=== PATIENT | female | born 1985 | race American Indian/Alaskan Native ===

== ENCOUNTER 2018-10-01 16:25 | Emergency (ER) | payer MEDICAID, OTHER ==
[2018-10-01] MEDS ORDERED: Ondansetron 4 MG Tab.DIS PO ONE (16:40)
[2018-10-01] MEDS ORDERED: Ketorolac 60 MG/2 ML SDV IM ONE (16:40)
--- NOTE | 2018-10-01 16:40 | EDM.PDOC ---
ED HPI GENERAL MEDICAL PROBLEM - General Chief Complaint: General Stated Complaint: flu like symptoms Time Seen by Provider: 10/01/18 16:27 Source of Information: Reports: Patient History Limitations: Reports: No Limitations - History of Present Illness INITIAL COMMENTS - FREE TEXT/NARRATIVE: HISTORY AND PHYSICAL: History of present illness: Patient is a 33-year-old female who presents to the emergency room today with complaints of body aches, cough and intermittent fevers x 24 hours. She has been using ibuprofen routinely without any relief. Patient denies any headache, change in vision, syncope or near syncope. Denies any chest pain, shortness of breath or cough. Denies any abdominal pain, nausea, vomiting, diarrhea, constipation or dysuria. Has not noted any blood in urine or stool. Patient has been eating and drinking appropriately. Review of systems: As per history of present illness and below otherwise all systems reviewed and negative. Past medical history: As per history of present illness and as reviewed below otherwise noncontributory. Surgical history: As per history of present illness and as reviewed below otherwise noncontributory. Social history: See social history for further information Family history: As per history of present illness and as reviewed below otherwise noncontributory. Physical exam: General: Well-developed and well-nourished 33-year-old female. Alert and oriented. Nontoxic appearing and in no acute distress. HEENT: Atraumatic, normocephalic, pupils equal and reactive bilaterally, negative for conjunctival pallor or scleral icterus, mucous membranes moist, TMs normal bilaterally, throat clear, neck supple, nontender, trachea midline. No drooling or trismus noted. No meningeal signs. No hot potato voice noted. Lungs: Diminished otherwise clear to auscultation, breath sounds equal bilaterally, chest nontender. dry nonproductive cough noted. Heart: S1S2, regular rate and rhythm without overt murmur Abdomen: Soft, nondistended, nontender. Negative for masses or hepatosplenomegaly. Negative for costovertebral tenderness. Pelvis: Stable nontender. Genitourinary: Deferred. Rectal: Deferred. Skin: Intact, warm, dry. No lesions or rashes noted. Extremities: Atraumatic, negative for cords or calf pain. Neurovascular unremarkable. Neuro: Awake, alert, oriented. Cranial nerves II through XII unremarkable. Cerebellum unremarkable. Motor and sensory unremarkable throughout. Exam nonfocal. Notes: Negative influenza screening. Supportive care measures were reviewed and discussed. Voices understanding and is agreeable to plan of care. Denies any further questions or concerns at this time. Diagnostics: Influenza Therapeutics: Toradol IM Prescription: Phenergan with Codeine Impression: Viral Illness Plan: 1. Please use Tylenol and/or Ibuprofen as needed for pain and fever management. 2. Get plenty of Rest. Encourage fluids to prevent dehydration. 3. Please follow up with your primary care provider. Return to the ED as needed as discussed. Definitive disposition and diagnosis as appropriate pending reevaluation and review of above. bodyaches Pain Score (Numeric/FACES): 5 - Related Data Allergies Allergy/AdvReac Type Severity Reaction Status Date / Time amoxicillin [Amoxicillin] Allergy Hives Verified 10/01/18 16:31 azithromycin [From Zithromax] Allergy Hives Verified 10/01/18 16:31 Penicillins Allergy Hives Verified 10/01/18 16:31 Home Meds: Home Meds Levothyroxine [Sythroid] 150 mcg PO DAILY 04/22/14 [History] Vitamin B Complex 1 tab PO DAILY 10/01/18 [History] Past Medical History HEENT History: Reports: None Cardiovascular History: Reports: None Respiratory History: Reports: Asthma Other Respiratory History: asthma symptoms if she has a cold Gastrointestinal History: Reports: None Genitourinary History: Reports: None [employer] History: Reports: Endometriosis, Musculoskeletal History: Reports: None Neurological History: Reports: None Psychiatric History: Reports: None Endocrine/Metabolic History: Reports: Hypothyroidism, Obesity/BMI 30+ Hematologic History: Reports: None Immunologic History: Reports: None Oncologic (Cancer) History: Reports: None Dermatologic History: Reports: None - Infectious Disease History Infectious Disease History: Reports: Chicken Pox - Past Surgical History Head Surgeries/Procedures: Reports: None HEENT Surgical History: Reports: None Cardiovascular Surgical History: Reports: None Respiratory Surgical History: Reports: None GI Surgical History: Reports: None Female Surgical History: Reports: Hysterectomy Endocrine Surgical History: Reports: None Neurological Surgical History: Reports: None Musculoskeletal Surgical History: Reports: None Oncologic Surgical History: Reports: None Dermatological Surgical History: Reports: None Social & Family History - Family History Family Medical History: Noncontributory - Tobacco Use Smoking Status *Q: Never Smoker Second Hand Smoke Exposure: No - Caffeine Use Caffeine Use: Reports: Soda - Recreational Drug Use Recreational Drug Use: No ED ROS GENERAL - Review of Systems Review Of Systems: ROS reveals no pertinent complaints other than HPI. ED EXAM, GENERAL - Physical Exam Exam: See Below (See dictation) Course - Vital Signs Last Recorded V/S: Last Vital Signs Temp 99.8 F 10/01/18 16:32 Pulse 94 10/01/18 16:32 Resp 18 10/01/18 16:32 BP 144/74 H 10/01/18 16:32 Pulse Ox 98 10/01/18 16:32 - Orders/Labs/Meds Meds: Medications Discontinued Medications Generic Name Dose Route Start Last Admin Trade Name Freq PRN Reason Stop Dose Admin Ketorolac Tromethamine 60 mg 10/01/18 16:40 10/01/18 16:48 Toradol IM 10/01/18 16:41 60 mg ONETIME ONE Administration Ondansetron HCl 4 mg 10/01/18 16:40 10/01/18 16:48 Zofran Odt PO 10/01/18 16:41 4 mg ONETIME ONE Administration Departure - Departure Time of Disposition: 17:22 Disposition: Home, Self-Care 01 Clinical Impression: Viral upper respiratory illness - Discharge Information Instructions: Upper Respiratory Infection, Adult, [id number] Referrals: Emiliana Colindres DO [Primary Care Provider] - Forms: ED Department Discharge Additional Instructions: The following information is given to patients seen in the emergency department who are being discharged to home. This information is to outline your options for follow-up care. We provide all patients seen in our emergency department with a follow-up referral. The need for follow-up, as well as the timing and circumstances, are variable depending upon the specifics of your emergency department visit. If you don't have a primary care physician on staff, we will provide you with a referral. We always advise you to contact your personal physician following an emergency department visit to inform them of the circumstance of the visit and for follow-up with them and/or the need for any referrals to a consulting specialist. The emergency department will also refer you to a specialist when appropriate. This referral assures that you have the opportunity for follow-up care with a specialist. All of these measure are taken in an effort to provide you with optimal care, which includes your follow-up. Under all circumstances we always encourage you to contact your private physician who remains a resource for coordinating your care. When calling for follow-up care, please make the office aware that this follow-up is from your recent emergency room visit. If for any reason you are refused follow-up, please contact the [facility] at and asked to speak to the emergency department charge nurse. [facility] [address] [place] [id number] [address] 1. Please use Tylenol and/or Ibuprofen as needed for pain and fever management. 2. Get plenty of Rest. Encourage fluids to prevent dehydration. 3. Please follow up with your primary care provider. Return to the ED as needed as discussed.
[2018-10-01 17:37] VITALS: BP 135/86
== END 2018-10-01 17:35 | disposition home or self-care (01) ==
LOC: MW.ED 16:25
DX: J06.9 Acute upper respiratory infection, unspecified (principal); E03.9 Hypothyroidism, unspecified; J45.909 Unspecified asthma, uncomplicated; Z79.899 Other long term (current) drug therapy; Z88.1 Allergy status to other antibiotic agents; Z88.0 Allergy status to penicillin
CPT/HCPCS: 87804; 99283; A9270; J1885

== ENCOUNTER 2021-01-01 23:11 | Emergency (ER) | payer BC, OTHER ==
[2021-01-02] MEDS ORDERED: Lactated Ringers 1,000 ML IV ONE (00:03)
[2021-01-02] MEDS ORDERED: Ketorolac 15 MG/ML SDV IVPUSH ONE (00:04)
[2021-01-02 00:30] LABS: BLOOD UREA NITROGEN,BUN 11 mg/dL (7.0-18.0); CARBON DIOXIDE,CO2 25.8 mmol/L (21.0-32.0); CHLORIDE,CL 107 mmol/L (98-107); GLUCOSE RANDOM 121 mg/dL (74-106); POTASSIUM,K 3.9 mmol/L (3.5-5.1); SODIUM,NA 143 mmol/L (136-145)
[2021-01-02] MEDS ORDERED: Morphine 4 MG/ML Syringe IVPUSH ONE (00:58)
--- NOTE | 2021-01-02 01:19 | CT ---
INDICATION: Left lower quadrant abdominal pain. Evaluate for diverticulitis or kidney stone. CT ABDOMEN AND PELVIS WITHOUT CONTRAST TECHNIQUE: Multidetector CT imaging was performed through the abdomen and pelvis without intravenous contrast administration. Coronal and sagittal reconstructions were generated. COMPARISON: 04/23/2014 CT abdomen and pelvis. FINDINGS: Lower chest: Lung bases are clear. Liver: Within normal limits. Gallbladder and bile ducts: Contracted gallbladder. No gallbladder wall thickening or calcified gallstones. No biliary dilation identified. Pancreas: Unremarkable. Spleen: Normal. Adrenals: No nodules or masses. Kidneys, ureters, and urinary bladder: No urinary tract stones identified. No renal masses or hydronephrosis. No bladder mass or definite wall thickening. Gastrointestinal tract and abdominal wall: Normal caliber bowel without wall thickening or obstruction. The appendix is normal. There are a few colon diverticula, without evidence of diverticulitis. Small fat-containing periumbilical hernia appears unchanged from before. Vascular structures: Normal for age. Peritoneum: No free air, abscess, or significant free fluid. Lymph nodes: No pathologically enlarged nodes identified. Reproductive organs: Status post hysterectomy, as before. No pelvic masses. Bones: Normal for age. IMPRESSION: 1. No acute abnormality identified. No urinary tract stone, hydronephrosis, or evidence of colonic diverticulitis. No cause for the patient`s symptoms is demonstrated. 2. Nonacute findings as detailed above. HALEY RAZA MD [employer] [facility] [employer] Dictated by Rei Raza MD @ 01/02/2021 1:15:51 AM Dictated by: Rei Raza MD @ 01/02/2021 01:17:12 (Electronically Signed)
--- NOTE | 2021-01-02 01:40 | EDM.PDOC ---
ED HPI GENERAL MEDICAL PROBLEM - General Chief Complaint: Abdominal Pain Stated Complaint: PAIN IN ABDAMIN ON LEFT SIDE Time Seen by Provider: 01/01/21 23:50 - History of Present Illness INITIAL COMMENTS - FREE TEXT/NARRATIVE: CHIEF COMPLAINT(S): Abdominal pain HISTORY OF PRESENT ILLNESS: This is a 35-year-old woman with a past medical history of endometriosis status post hysterectomy who comes to the emergency department with a chief complaint of abdominal pain. The patient states that for approximately 2 days now she has been experiencing throbbing left-sided lower quadrant abdominal pain which is spreading up and under her rib in her lower back and side. She rates her pain as 6 out of 10. She states that it is not worse with movement and it is now constant. She states that she has tried ibuprofen, hydration and rest but it does not seem to help. She denies any aggravating factors. She denies any fever, chills, vaginal bleeding, vaginal discharge, dysuria, hematuria, nausea or vomiting. She denies any diarrhea, constipation, melena or hematemesis. She denies any history of diverticulitis or diverticulosis. She states that her last colonoscopy was normal. REVIEW OF SYSTEMS: Constitutional: Denies fever, chills. Eyes: Denies eye pain Ears, Nose, Mouth, & Throat: Denies earache Cardiovascular: Denies chest pain Respiratory: Denies shortness of breath Gastrointestinal: Positive for left lower quadrant abdominal pain. Denies Nausea, vomiting, diarrhea, hematochezia. Genitourinary: Denies hematuria, dysuria, vaginal bleeding, vaginal discharge skin:Denies a rash MSK: Positive for left lower back pain Neurological: Denies blurred vision Psychiatric: Denies depression PAST MEDICAL HISTORY: As per history of present illness and as reviewed below otherwise noncontributory. SURGICAL HISTORY: As per history of present illness and as reviewed below otherwise noncontributory. SOCIAL HISTORY: As per history of present illness and as reviewed below otherwise noncontributory. FAMILY HISTORY: As per history of present illness and as reviewed below otherwise noncontributory. EXAMINATION OF ORGAN SYSTEMS/BODY AREAS: Constitutional: Blood pressure was 143/90, heart rate 71, respiratory rate 18 with an oxygen saturation 98% on room air. Temperature 36.1 General: Young woman who appears to be in a mild amount of pain. Psychiatric: Appropriate mood and affect. Eyes: No scleral icterus or conjunctival erythema ENMT: Moist mucous membranes. No pharyngeal erythema Cardiovascular: Regular, rate, and rhythm. No gallops, murmurs, or rubs. Bilateral upper extremity pulses symmetric and intact. No peripheral edema. No JVD. Respiratory: Lungs clear to auscultation bilaterally. No wheezes, rales, or rhonchi. Gastrointestinal: Soft, tenderness to palpation the left lower quadrant and left flank, nondistended. No rebound or guarding. Negative Do's and McBurney's. Normoactive bowel sounds Genitourinary: No suprapubic tenderness no CVA tenderness. Musculoskeletal: Normal range of motion. There is left lower paraspinal lumbar tenderness with some muscular tension in this area. No overlying skin changes skin: No lesions or abrasions. Neurological: Alert, GCS 15 MEDICAL DECISION MAKING AND COURSE IN THE ED WITH INTERPRETATION/REVIEW OF DIAGNOSTIC STUDIES: This is a 35-year-old woman with a past medical history of endometriosis status post hysterectomy who comes to the emergency department with 2 days of throbbing left lower quadrant abdominal pain and left lower back pain. At this time I do believe the lower back pain is likely separate from the left lower quadrant pain. At this time differential includes ovarian torsion, diverticulitis, nephrolithiasis. We will provide the patient with Toradol for pain relief and provide her with 1 L of lactated Ringer's bolus. At this time I discussed with patient I would like to perform a bedside transvaginal bimanual examination to evaluate for adnexal tenderness and need for ultrasound examination. Examination was performed with RN júnior Rodriguez. The patient had normal female external genitalia. On bimanual examination there was no left or right adnexal tenderness. Therefore at this time I do not believe any ultrasound is needed at this time. Will obtain a CT abdomen pelvis without contrast to evaluate for diverticulitis versus nephrolithiasis. Will obtain laboratory analysis including CBC, CMP, urinalysis and hCG. Laboratory: CBC is unremarkable. CMP reveals hyperglycemia at 121 otherwise unremarkable. hCG is negative. Urinalysis was a clean catch and was negative for leukocyte esterase, negative for nitrites, and negative for blood. Interpretation: Negative. On reevaluation patient had continued pain therefore I provided the patient with 4 mg of IV morphine. CT was pending at this time. The radiological images were viewed by myself along with reading the report from the radiologist. CT abdomen pelvis without contrast does not reveal any acute abnormality identified. No urinary tract stones, hydronephrosis or evidence of colonic diverticulitis. There is no pathologic free fluid or any other abdominal or pelvic process. On reevaluation the patient reported improvement in her pain. I did discuss with her the imaging and laboratory results. I did discuss with her at this time that I do believe her pain could be secondary to rectus abdominis muscle spasm versus strain and paraspinal lumbar muscle strain. I discussed treatment modalities for this. I did discuss with her that if she had worsening symptoms she should return to the emergency department. Otherwise she should follow up with her primary care physician. She was amenable discharge at this time and had no further questions. DISPOSITION: The patient was discharged home in stable condition. The patient will follow up with primary care physician in 3 to 5 days CONDITION: Fair PROCEDURES: None FINAL IMPRESSION(S)/DIAGNOSES: 1. Acute lumbar musculoskeletal strain 2. Acute left lower quadrant anterior abdominal wall pain, likely musculoskeletal Nahum Hunt M.D. left side Pain Score (Numeric/FACES): 7 - Related Data Allergies Allergy/AdvReac Type Severity Reaction Status Date / Time amoxicillin [Amoxicillin] Allergy Hives Verified 01/01/21 23:23 azithromycin [From Zithromax] Allergy Hives Verified 01/01/21 23:23 Penicillins Allergy Hives Verified 01/01/21 23:23 Home Meds: Home Meds methocarbamoL [Robaxin] 1,500 mg PO TID #50 tab 01/02/21 [Rx] Past Medical History HEENT History: Reports: None Cardiovascular History: Reports: None Respiratory History: Reports: Asthma Other Respiratory History: asthma symptoms if she has a cold Gastrointestinal History: Reports: None Genitourinary History: Reports: None [employer] HOME History: Reports: Endometriosis, Musculoskeletal History: Reports: None Neurological History: Reports: None Psychiatric History: Reports: None Endocrine/Metabolic History: Reports: Hypothyroidism, Obesity/BMI 30+ 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 Hematologic History: Reports: None Immunologic History: Reports: None Oncologic (Cancer) History: Reports: None Dermatologic History: Reports: None - Infectious Disease History Infectious Disease History: Reports: Chicken Pox - Past Surgical History Head Surgeries/Procedures: Reports: None HEENT Surgical History: Reports: None Cardiovascular Surgical History: Reports: None Respiratory Surgical History: Reports: None GI Surgical History: Reports: None Female Surgical History: Reports: Hysterectomy Endocrine Surgical History: Reports: None Neurological Surgical History: Reports: None Musculoskeletal Surgical History: Reports: None Oncologic Surgical History: Reports: None Dermatological Surgical History: Reports: None Social & Family History - Family History Family Medical History: No Pertinent Family History - Tobacco Use Second Hand Smoke Exposure: No - Caffeine Use Caffeine Use: Reports: Soda - Recreational Drug Use Recreational Drug Use: No ED ROS GENERAL - Review of Systems Review Of Systems: See Below ED EXAM, GENERAL - Physical Exam Exam: See Below Course - Vital Signs Last Recorded V/S: Last Vital Signs Temp 36.3 C 01/02/21 01:50 Pulse 64 01/02/21 01:50 Resp 18 01/02/21 01:50 BP 124/84 01/02/21 01:50 Pulse Ox 97 01/02/21 01:50 - Orders/Labs/Meds Labs: Laboratory Tests 01/01/21 01/01/21 01/01/21 Range/Units 23:33 23:33 23:33 WBC 8.26 (4.0-11.0) K/uL RBC 3.99 L (4.30-5.90) M/uL Hgb 12.7 (12.0-16.0) g/dL Hct 36.7 (36.0-46.0) % MCV 92.0 (80.0-98.0) fL MCH 31.8 (27.0-32.0) pg MCHC 34.6 (31.0-37.0) g/dL RDW Std Deviation 44.2 (28.0-62.0) fl RDW Coeff of Nusrat 13 (11.0-15.0) % Plt Count 306 (150-400) K/uL MPV 10.60 (7.40-12.00) fL Neut % (Auto) 63.3 (48.0-80.0) % Lymph % (Auto) 28.5 (16.0-40.0) % Dade % (Auto) 5.9 (0.0-15.0) % Eos % (Auto) 2.1 (0.0-7.0) % Baso % (Auto) 0.2 (0.0-1.5) % Neut # (Auto) 5.2 (1.4-5.7) K/uL Lymph # (Auto) 2.4 (0.6-2.4) K/uL Dade # (Auto) 0.5 (0.0-0.8) K/uL Eos # (Auto) 0.2 (0.0-0.7) K/uL Baso # (Auto) 0.0 (0.0-0.1) K/uL Nucleated RBC % 0.0 /100WBC Nucleated RBCs # 0 K/uL Sodium (136-145) mmol/L Potassium (3.5-5.1) mmol/L Chloride (98-107) mmol/L Carbon Dioxide (21.0-32.0) mmol/L BUN (7.0-18.0) mg/dL Creatinine (0.6-1.0) mg/dL Est Cr Clr Drug Dosing mL/min Estimated GFR (MDRD) ml/min Glucose (74-106) mg/dL Calcium (8.5-10.1) mg/dL Total Bilirubin (0.2-1.0) mg/dL AST (15-37) IU/L ALT (14-63) IU/L Alkaline Phosphatase (46-116) U/L Total Protein (6.4-8.2) g/dL Albumin (3.4-5.0) g/dL Globulin (2.6-4.0) g/dL Albumin/Globulin Ratio (0.9-1.6) Urine Color YELLOW Urine Appearance SLT CLOUDY Urine pH 7.0 (5.0-8.0) Ur Specific [place] 1.025 (1.001-1.035) Urine Protein NEGATIVE (NEGATIVE) mg/dL Urine Glucose (UA) NEGATIVE (NEGATIVE) mg/dL Urine Ketones NEGATIVE (NEGATIVE) mg/dL Urine Occult Blood NEGATIVE (NEGATIVE) Urine Nitrite NEGATIVE (NEGATIVE) Urine Bilirubin NEGATIVE (NEGATIVE) Urine Urobilinogen 0.2 (<2.0) EU/dL Ur Leukocyte Esterase NEGATIVE (NEGATIVE) Urine HCG, Qual NEGATIVE (NEGATIVE) 01/01/21 Range/Units 23:33 WBC (4.0-11.0) K/uL RBC (4.30-5.90) M/uL Hgb (12.0-16.0) g/dL Hct (36.0-46.0) % MCV (80.0-98.0) fL MCH (27.0-32.0) pg MCHC (31.0-37.0) g/dL RDW Std Deviation (28.0-62.0) fl RDW Coeff of Nusrat (11.0-15.0) % Plt Count (150-400) K/uL MPV (7.40-12.00) fL Neut % (Auto) (48.0-80.0) % Lymph % (Auto) (16.0-40.0) % Dade % (Auto) (0.0-15.0) % Eos % (Auto) (0.0-7.0) % Baso % (Auto) (0.0-1.5) % Neut # (Auto) (1.4-5.7) K/uL Lymph # (Auto) (0.6-2.4) K/uL Dade # (Auto) (0.0-0.8) K/uL Eos # (Auto) (0.0-0.7) K/uL Baso # (Auto) (0.0-0.1) K/uL Nucleated RBC % /100WBC Nucleated RBCs # K/uL Sodium 143 (136-145) mmol/L Potassium 3.9 (3.5-5.1) mmol/L Chloride 107 (98-107) mmol/L Carbon Dioxide 25.8 (21.0-32.0) mmol/L BUN 11 (7.0-18.0) mg/dL Creatinine 0.9 (0.6-1.0) mg/dL Est Cr Clr Drug Dosing 77.01 mL/min Estimated GFR (MDRD) > 60.0 ml/min Glucose 121 H (74-106) mg/dL Calcium 8.7 (8.5-10.1) mg/dL Total Bilirubin 0.4 (0.2-1.0) mg/dL AST 19 (15-37) IU/L ALT 30 (14-63) IU/L Alkaline Phosphatase 105 (46-116) U/L Total Protein 7.2 (6.4-8.2) g/dL Albumin 3.7 (3.4-5.0) g/dL Globulin 3.5 (2.6-4.0) g/dL Albumin/Globulin Ratio 1.1 (0.9-1.6) Urine Color Urine Appearance Urine pH (5.0-8.0) Ur Specific [place] (1.001-1.035) Urine Protein (NEGATIVE) mg/dL Urine Glucose (UA) (NEGATIVE) mg/dL Urine Ketones (NEGATIVE) mg/dL Urine Occult Blood (NEGATIVE) Urine Nitrite (NEGATIVE) Urine Bilirubin (NEGATIVE) Urine Urobilinogen (<2.0) EU/dL Ur Leukocyte Esterase (NEGATIVE) Urine HCG, Qual (NEGATIVE) Meds: Medications Discontinued Medications Generic Name Dose Route Start Last Admin Trade Name Mikeq PRN Reason Stop Dose Admin Lactated Ringer's 1,000 mls @ 999 mls/hr 01/02/21 00:03 01/02/21 00:08 Ringers, Lactated IV 01/02/21 01:03 999 mls/hr .BOLUS ONE Administration Ketorolac Tromethamine 15 mg 01/02/21 00:04 01/02/21 00:08 Ketorolac 15 Mg/Ml Sdv IVPUSH 01/02/21 00:05 15 mg ONETIME ONE Administration Morphine Sulfate 4 mg 01/02/21 00:58 01/02/21 01:05 Morphine 4 Mg/Ml Syringe IVPUSH 01/02/21 00:59 4 mg ONETIME ONE Administration Departure - Departure Time of Disposition: 01:35 Disposition: Home, Self-Care 01 Condition: Fair Clinical Impression: Strain of lumbar paraspinal muscle, Strain of rectus abdominis muscle - Discharge Information *PRESCRIPTION DRUG MONITORING PROGRAM REVIEWED*: No *COPY OF PRESCRIPTION DRUG MONITORING REPORT IN PATIENT ANGELIA: No Prescriptions: methocarbamoL [Robaxin] 1,500 mg PO TID #50 tab Instructions: Muscle Strain, [id number], Pain Medicine Instructions, [id number], Lumbar Strain Referrals: Keyana Romo MD [Primary Care Provider] - Forms: ED Department Discharge Additional Instructions: You evaluate today on an emergent basis. At this time all of your labs are normal and your CT was also normal. At this time I do believe that your lower back pain is likely secondary to lumbar muscle strain. Given that the pain on your anterior abdominal wall goes in the location of the muscle fibers this could also be a rectus abdominis muscle strain. This is a fancy term for the muscles of your sixpack. At this time I do recommend conservative treatment including Tylenol and Motrin for pain relief. I do recommend use a heating pad 20 minutes 4 times a day and massage. I did send you a prescription for Robaxin which is 1500 mg 3 times a day. I would like you to follow-up with your primary care physician in 2 to 3 days for further evaluation and monitoring. As always if you have any worsening abdominal pain, nausea, vomiting, fevers I would like you to return to the emergency department. Please use: Tylenol 500-1000mg every 6 hours (DO NOT TAKE MORE THAN 4000mg in 1 day) Ibuprofen 400mg every 6 hours (Take with food as it can cause ulcers, GI upset) Example schedule: 8:00 AM (Tylenol 500-1000mg) 11:00 AM (Ibuprofen 400mg) 2:00 PM (Tylenol 500-1000mg) 5:00 PM (Ibuprofen 400mg) In addition to Tylenol and Motrin you may use over the counter creams such as Voltaren Cream or Lidocaine Cream (Lidoderm) as needed 4 times a day for symptomatic relief. [facility] - Primary [facility] [address] [place] [address] [place] [address] The patient is informed of any results of their evaluation and diagnostic workup and all questions are answered. They are given discharge instructions and return precautions. The patient is stable for discharge. The patient states they understand and agree with the plan and that they will return if their symptoms get worse or if they have any new concerns. The following information is given to patients seen in the emergency department who are being discharged to home. This information is to outline your options for follow-up care. We provide all patients seen in our emergency department with a follow-up referral. The need for follow-up, as well as the timing and circumstances, are variable depending upon the specifics of your emergency department visit. If you don't have a primary care physician on staff, we will provide you with a referral. We always advise you to contact your personal physician following an emergency department visit to inform them of the circumstance of the visit and for follow-up with them and/or the need for any referrals to a consulting sp ecialist. The emergency department will also refer you to a specialist when appropriate. This referral assures that you have the opportunity for follow-up care with a specialist. All of these measure are taken in an effort to provide you with optimal care, which includes your follow-up. Under all circumstances we always encourage you to contact your private physician who remains a resource for coordinating your care. When calling for follow-up care, please make the office aware that this follow-up is from your recent emergency room visit. If for any reason you are refused follow-up, please contact the [facility] Emergency Department at and asked to speak to the emergency department charge nurse. Sepsis Event Note (ED) - Evaluation Sepsis Screening Result: No Definite Risk - Focused Exam Vital Signs: Vital Signs Temp Pulse Resp BP Pulse Ox 01/02/21 01:50 36.3 C 64 18 124/84 97 01/02/21 01:23 66 16 126/85 97 01/02/21 00:25 62 18 141/78 H 98 01/01/21 23:20 36.1 C 71 18 143/90 H 98
[2021-01-02 02:29] VITALS: BP 124/84; PULSE 64
== END 2021-01-02 01:50 | disposition home or self-care (01) ==
LOC: MW.ED 23:11
DX: S39.012A Strain of muscle, fascia and tendon of lower back, initial encounter (principal); S39.011A Strain of muscle, fascia and tendon of abdomen, initial encounter; E66.9 Obesity, unspecified; Z68.38 Body mass index [BMI] 38.0-38.9, adult; Z90.710 Acquired absence of both cervix and uterus; Z88.0 Allergy status to penicillin; Z88.1 Allergy status to other antibiotic agents; X58.XXXA Exposure to other specified factors, initial encounter
CPT/HCPCS: 36415; 74176; 80053; 81003; 81025; 85025; 96374; 96375; 99284; J1885; J2270; J7120; 99283

== ENCOUNTER 2021-03-09 18:50 | Emergency (ER) | payer BC, OTHER | END 2021-03-09 22:57 | disposition left against medical advice (07) | LOC: MW.ED 18:50 | DX: S99.929A Unspecified injury of unspecified foot, initial encounter (principal); Z53.21 Procedure and treatment not carried out due to patient leaving prior to being seen by health care provider ==

== ENCOUNTER 2023-04-02 21:29 | Emergency (ER) | payer MEDICAID, OTHER ==
[2023-04-02 23:25] VITALS: BP 140/89; PULSE 69
== END 2023-04-02 23:23 | disposition home or self-care (01) ==
LOC: MW.ED 21:29
DX: S89.92XA Unspecified injury of left lower leg, initial encounter (principal); E03.9 Hypothyroidism, unspecified; E66.9 Obesity, unspecified; Z68.36 Body mass index [BMI] 36.0-36.9, adult; Z88.0 Allergy status to penicillin; Z88.1 Allergy status to other antibiotic agents; Z79.899 Other long term (current) drug therapy; W22.8XXA Striking against or struck by other objects, initial encounter
CPT/HCPCS: 73562-26-LT; 73562-LT; 99282; 99283

== ENCOUNTER 2024-05-24 06:51 | Day surgery (SDC) | payer MEDICAID, OTHER ==
[~2024-05-24 06:51] MED LIST: Albuterol 0.083% 2.5 MG/3 ML Neb Soln NEB PRN; Metoclopramide 10 MG/2 ML SDV IVPUSH PRN; Morphine 2 MG/ML SYRINGE IVPUSH PRN; Naloxone 0.4 MG/ML SDV IVPUSH PRN; Ondansetron 4 MG/2 ML SDV IVPUSH PRN; Phenylephrine HCl In 0.9% NaCl 1 MG/10 ML Syringe IVPUSH PRN; fentaNYL 50 MCG/ML SDV IVPUSH PRN
[2024-05-24] MEDS: Scopalamine 1mg/3day Transdermal Patch TOP ONE (07:11)
[2024-05-24] MEDS: Lactated Ringers 1,000 ML IV SCH (07:11)
[2024-05-24] MEDS ORDERED: Bupivacaine 0.5% 30 ML SDV ONE (07:15)
[2024-05-24] MEDS ORDERED: propofoL 500 MG/50 ML 50 ML ONE ×2 (07:20→08:15)
[2024-05-24] MEDS ORDERED: dexmedeTOMIDine HCl 200 MCG/2 ML SDV ONE (07:21)
[2024-05-24] MEDS ORDERED: Water For Injection, Sterile 20 ML ONE (07:21)
[2024-05-24] MEDS ORDERED: fentaNYL 100 MCG/2 ML SDV ONE (07:22)
[2024-05-24] MEDS ORDERED: Rocuronium Bromide 50 MG/5 ML Syringe ONE (07:25)
[2024-05-24] MEDS ORDERED: Famotidine 20 MG/2 ML SDV ONE (07:27)
[2024-05-24] MEDS ORDERED: Dexamethasone 4 MG/ML 5 ML MDV ONE (08:09)
[2024-05-24] MEDS ORDERED: Ondansetron 4 MG/2 ML SDV ONE ×2 (08:09→09:02)
[2024-05-24] MEDS ORDERED: Sugammadex Sodium 200 MG/2 ML VIAL IV ONE (08:11)
[2024-05-24] MEDS ORDERED: Ketorolac 30 MG/ML SDV ONE (08:11)
[2024-05-24] MEDS ORDERED: Acetaminophen/HYDROcodone 325-5 MG Tab PO PRN (09:18)
[2024-05-24] MEDS: HYDROmorphone 1 MG/ML Syringe IVPUSH PRN (09:22)
[2024-05-24] MEDS ORDERED: Lactated Ringers 1,000 ML IV SCH (09:30)
[2024-05-24 10:46] VITALS: BP 100/62; PULSE 45
== END 2024-05-24 11:06 | disposition home or self-care (01) ==
LOC: MW.SDS 06:51
PROVIDERS: ATTEND Surgery
DX: D17.1 Benign lipomatous neoplasm of skin and subcutaneous tissue of trunk (principal); I10 Essential (primary) hypertension; E03.9 Hypothyroidism, unspecified; F32.A Depression, unspecified; E66.01 Morbid (severe) obesity due to excess calories; Z68.41 Body mass index [BMI] 40.0-44.9, adult; J45.909 Unspecified asthma, uncomplicated; Z79.890 Hormone replacement therapy; Z79.899 Other long term (current) drug therapy; Z88.0 Allergy status to penicillin
CPT/HCPCS: 21931; A9270; J0131; J0665; J1100; J1171; J1885; J2405; J2704; J3010; J3490; J7120; 00300

== ENCOUNTER 2024-10-29 06:02 | Emergency (ER) | payer MEDICAID, OTHER ==
[2024-10-29] MEDS ORDERED: Ondansetron 4 MG/2 ML SDV IVPUSH ONE (06:14)
[2024-10-29] MEDS ORDERED: HYDROmorphone 0.5 MG/0.5 ML Syringe IVPUSH PRN (06:25)
[2024-10-29 06:32] LABS: BASOPHILS ABSOLUTE AUTO 0.03 K/uL (0.00-0.20); BASOPHILS PERCENT AUTO 0.3 % (0.0-1.0); EOSINOPHILS ABSOLUTE AUTO 0.19 K/uL (0.00-0.45); EOSINOPHILS PERCENT AUTO 2.1 % (0.0-6.0); HEMATOCRIT 35.9 % (37.0-47.0); HEMOGLOBIN 12.4 g/dL (12.0-16.0); IMMATURE GRAN ABSOLUTE AUTO 0.03 K/uL (0.00-0.05); IMMATURE GRAN PERCENT AUTO 0.3 % (0.0-0.4); LYMPHOCYTES PERCENT AUTO 22.8 % (24.0-44.0); MEAN CORPUSCULAR HEMOGLOBIN 31.6 pg (28.0-32.0); MEAN CORPUSCULAR HGB CONC 34.5 g/dL (32.0-36.0); MEAN CORPUSCULAR VOLUME 91.6 fL (83.0-99.0); MEAN PLATELET VOLUME 10.5 fL (9.4-12.3); MONOCYTES ABSOLUTE AUTO 0.53 K/uL (0.00-0.80); MONOCYTES PERCENT AUTO 5.7 % (0.0-8.0); NEUTROPHILS ABSOLUTE AUTO 6.35 K/uL (1.80-7.70); NEUTROPHILS PERCENT AUTO 68.8 % (41.0-71.0); PLATELET COUNT,PLT 277 K/uL (150-400); RED BLOOD CELL COUNT 3.92 M/uL (4.10-5.30); WHITE BLOOD CELL COUNT,WBC 9.23 K/uL (3.9-11.3)
[2024-10-29] MEDS: Sodium Chloride 0.9% 1,000 ML IV ONE (06:37)
[2024-10-29] MEDS: Pantoprazole 40 MG in Sodium Chloride 0.9% 10 ML IVPUSH ONE (06:38)
[2024-10-29] MEDS: droPERidol 2.5 MG/ML SDV IVPUSH ONE (06:40)
[2024-10-29] MEDS: Iopamidol 755 MG/ML 500 ML Multipack Bottle IVPUSH ONE (06:53)
[2024-10-29 07:04] LABS: A/G RATIO 0.9 (0.9-1.6); ALBUMIN 3.7 g/dL (3.4-5.0); BILIRUBIN TOTAL 0.3 mg/dL (0.2-1.0); C-REACTIVE PROTEIN 1.46 mg/dL (<0.3); CALCIUM 9.1 mg/dL (8.5-10.1); CARBON DIOXIDE,CO2 29.6 mmol/L (21.0-32.0); CREATININE 0.9 mg/dL (0.6-1.0); EST CRCL DRUG DOSING (CG) 74.02 mL/min; POTASSIUM,K 4.1 mmol/L (3.5-5.1); PROTEIN TOTAL,TP 7.6 g/dL (6.4-8.2)
[2024-10-29] MEDS: Alum Hydrox/Mag Hydrox/Simeth 15 ML, Metoclopramide 5 MG, Lidocaine 2% 5 ML PO ONE (07:26)
[2024-10-29 07:48] VITALS: BP 138/99; PULSE 71
== END 2024-10-29 09:45 | disposition home or self-care (01) ==
LOC: MW.ED 06:02
DX: K80.20 Calculus of gallbladder without cholecystitis without obstruction (principal); K21.00 Gastro-esophageal reflux disease with esophagitis, without bleeding; I10 Essential (primary) hypertension; E03.9 Hypothyroidism, unspecified; E66.9 Obesity, unspecified; Z68.30 Body mass index [BMI] 30.0-30.9, adult; Z88.0 Allergy status to penicillin; Z88.1 Allergy status to other antibiotic agents; Z79.890 Hormone replacement therapy; Z79.899 Other long term (current) drug therapy
CPT/HCPCS: 36415; 74177; 76705; 80053; 83605; 83690; 85025; 85652; 86140; 93005; 96361; 96374; 96375; 99284; A9270; J1790; J2470; J7030; Q9967

== ENCOUNTER 2024-11-12 09:04 | Day surgery (SDC) | payer MEDICAID, OTHER ==
[2024-11-12] MEDS: Lactated Ringers 1,000 ML IV SCH (09:58)
[2024-11-12] MEDS ORDERED: Propofol 200 MG/20 ML SDV ONE (10:21)
[2024-11-12] MEDS ORDERED: Lidocaine 2% 5 ML SDV ONE (10:21)
[2024-11-12] MEDS ORDERED: Lactated Ringers 1,000 ML IV SCH (11:45)
[2024-11-12 12:18] VITALS: BP 149/84; PULSE 60
== END 2024-11-12 12:20 | disposition home or self-care (01) ==
LOC: MW.SDS 09:04
PROVIDERS: ATTEND Surgery
DX: K29.50 Unspecified chronic gastritis without bleeding (principal); I10 Essential (primary) hypertension; J45.909 Unspecified asthma, uncomplicated; F32.A Depression, unspecified; K21.9 Gastro-esophageal reflux disease without esophagitis; E03.9 Hypothyroidism, unspecified; E66.01 Morbid (severe) obesity due to excess calories; Z79.890 Hormone replacement therapy; Z79.899 Other long term (current) drug therapy; Z88.0 Allergy status to penicillin; Z88.1 Allergy status to other antibiotic agents
CPT/HCPCS: 43239; J2003; J2704; J7120; 00731